=== PATIENT | male | born 1995 | race Caucasian/White ===

== ENCOUNTER 2019-08-03 14:29 | Emergency (ER) | payer SELFPAY ==
[2019-08-03] MEDS ORDERED: SODIUM CHLORIDE 0.9% 1,000 ML IV ONE (15:08)
[2019-08-03] MEDS ORDERED: KETOROLAC 30 MG/ML VIAL IVP STA (15:08)
--- NOTE | 2019-08-03 15:12 | ED Physician Documentation ---
PD HPI ABD PAIN - Stated complaint Stated Complaint: LT SIDE LOWER ABD PAIN, NO BM - Chief complaint Chief Complaint: Abd Pain - History obtained from History obtained from: Patient, Family - History of Present Illness Timing - onset: Enter time (1100), Today Timing - duration: Hours Timing - details: Abrupt onset, Still present Quality: Cramping, Sharp, Pain Location: LUQ, LLQ Radiation: Left flank Improved by: Other (nothing) Worsened by: Other (nothing) Associated symptoms: Nausea, Constipation. No: Vomiting, Diarrhea Similar symptoms before: Has not had sx before Recently seen: Not recently seen - Additional information Additional information: Previously well 24-year-old male has had acute onset of left flank pain radiating around the front of his abdomen at approximate 11:00 this morning he has had severe enough pain that he called his mother crying. She has brought him here to the hospital and his pain has undulated slightly but he does not have specific modifying factors for this pain. He does state that he thinks that when he was jumping up and down and running around in the front yard trying to get rid of the pain that it did not really help. He felt that it just made him short of breath. He has not had this previously. He does acknowledge no BM in the past 2 days.. Review of Systems Constitutional: denies: Fever, Chills Eyes: denies: Decreased vision Ears: denies: Ear pain Nose: reports: Rhinorrhea / runny nose, Congestion Throat: denies: Sore throat Cardiac: denies: Chest pain / pressure, Palpitations Respiratory: reports: Cough GI: reports: Abdominal Pain, Nausea, Constipation. denies: Vomiting, Diarrhea : denies: Dysuria, Frequency Skin: denies: Rash Musculoskeletal: reports: Back pain. denies: Neck pain, Extremity pain PD PAST MEDICAL HISTORY - Past Medical History Past Medical History: No Cardiovascular: None Respiratory: None Neuro: None Endocrine/Autoimmune: None GI: None : None HEENT: None Psych: None Musculoskeletal: None Derm: None - Past Surgical History Past Surgical History: No - Present Medications Home Medications: Ambulatory Orders Medication Instructions Recorded Confirmed Hydrocodone/Acetaminophen 1 - 2 each PO Q6H PRN #14 tablet 08/03/19 [Hydrocodon-Acetaminophen 5-325] - Allergies Allergies/Adverse Reactions: Allergies Allergy/AdvReac Type Severity Reaction Status Date / Time No Known Drug Allergies Allergy Verified 08/03/19 14:39 - Social History Does the pt smoke?: No Smoking Status: Never smoker Does the pt drink ETOH?: Yes Does the pt have substance abuse?: Yes Substance Use and Type: Marijuana - Immunizations Immunizations are current?: No - POLST Patient has POLST: No PD ED PE NORMAL - Vitals Vital signs reviewed: Yes (normal) - General General: Alert and oriented X 3, No acute distress, Well developed/nourished - HEENT HEENT: Atraumatic, PERRL, EOMI - Neck Neck: Supple, no meningeal sign, No bony TTP - Cardiac Cardiac: RRR, No murmur - Respiratory Respiratory: No respiratory distress, Clear bilaterally - Abdomen Abdomen: Normal bowel sounds, Soft, Non tender, Non distended, No organomegaly - Back Back: No CVA TTP, No spinal TTP - Derm Derm: Normal color, Warm and dry, No rash - Extremities Extremities: No deformity, No edema - Neuro Neuro: Alert and oriented X 3, customer service specialist 2-12 intact, No motor deficit, No sensory deficit, Normal speech Eye Opening: Spontaneous Motor: Obeys Commands Verbal: Oriented GCS Score: 15 - Psych Psych: Normal mood, Normal affect Results - Vitals Vitals: Vital Signs - 24 hr 08/03/19 08/03/19 14:39 16:54 Temperature 36.5 C 37 C Heart Rate 66 68 Respiratory 14 16 Rate Blood Pressure 112/75 123/79 O2 Saturation 100 100 Oxygen O2 Source Room air - Labs Labs: Laboratory Tests 08/03/19 08/03/19 08/03/19 15:15 15:15 16:18 WBC 11.4 H RBC 5.04 Hgb 15.1 Hct 43.6 MCV 86.5 MCH 30.0 MCHC 34.6 RDW 12.7 Plt Count 278 MPV 9.9 Neut # (Auto) 9.7 H Lymph # (Auto) 1.0 L [place] # (Auto) 0.6 Eos # (Auto) 0.0 Baso # (Auto) 0.1 Absolute Nucleated RBC 0.00 Nucleated RBC % 0.0 Sodium 138 Potassium 3.8 Chloride 101 Carbon Dioxide 27 Anion Gap 10.0 BUN 8 Creatinine 0.9 Estimated GFR (MDRD) 104 Glucose 112 H Calcium 9.1 Total Bilirubin 0.8 AST 16 ALT 13 Alkaline Phosphatase 90 Total Protein 7.2 Albumin 4.3 Globulin 2.9 Albumin/Globulin Ratio 1.5 Lipase 26 Urine Color YELLOW Urine Clarity CLEAR Urine pH 7.0 Ur Specific [place] <=1.005 Urine Protein NEGATIVE Urine Glucose (UA) NEGATIVE Urine Ketones NEGATIVE Urine Occult Blood LARGE H Urine Nitrite NEGATIVE Urine Bilirubin NEGATIVE Urine Urobilinogen 0.2 (NORMAL) Ur Leukocyte Esterase NEGATIVE Urine RBC 11-25 H Urine WBC 0-3 Ur Squamous Epith Cells NONE SEEN Urine Bacteria None Seen Ur Microscopic Review INDICATED Urine Culture Comments NOT INDICATED - Rads (name of study) CT ab/pel w/o Radiology: Prelim report reviewed (Impression: 3 x 3 x 3 mm left UVJ J calculus with mild upstream hydronephrosis.), EMP read indepedently, See rad report Procedures - Bedside sono Bedside sono by EMP: With use of bedside ultrasound the left kidney is imaged it is sonographically nontender there is evidence of hydronephrosis. PD MEDICAL DECISION MAKING - ED course Complexity details: reviewed results, re-evaluated patient, considered differential, d/w patient, d/w family ED course: 24-year-old male with acute onset of left flank pain has a nontender left flank and hydro-on bedside ultrasound. A CT scan of the abdomen pelvis is obtained demonstrating a 3 x 3 x 3 mm stone at the left UVJ and the patient has improvement in his pain with saline and Toradol. Departure - Departure Disposition: 01 Home, Self Care Clinical Impression: Ureterolithiasis Condition: Stable Instructions: ED Stone Renal W Colic Follow-Up: [facility] [Provider Group] Prescriptions: Hydrocodone/Acetaminophen [Hydrocodon-Acetaminophen 5-325] 1 - 2 each PO Q6H PRN #14 tablet PRN Reason: pain Discharge Date/Time: 08/03/19 16:54
[2019-08-03 15:26] LABS: BASOPHILS # (AUTO) 0.1 10^3/uL (0.0-0.1); BASOPHILS % (AUTO) 0.6 %; EOSINOPHILS % (AUTO) 0.3 %; HGB - HEMOGLOBIN 15.1 g/dL (14.0-18.0); LYMPHOCYTES % (AUTO) 8.6 %; MEAN CORPUSCULAR HGB CONC 34.6 g/dL (32.0-36.0); MEAN CORPUSCULAR VOLUME 86.5 fL (80.0-94.0); MEAN PLATELET VOLUME 9.9 fL (7.4-11.4); MONOCYTES # (AUTO) 0.6 10^3/uL (0.0-1.0); MONOCYTES % (AUTO) 5.4 %; NEUTROPHILS # (AUTO) 9.7 10^3/uL (1.5-6.6); NEUTROPHILS % (AUTO) 84.6 %; PLT - PLATELET COUNT 278 10^3/uL (130-450); RED BLOOD COUNT 5.04 10^6/uL (4.70-6.10); RED CELL DISTRIBUTION WIDTH 12.7 % (12.0-15.0); WHITE BLOOD COUNT 11.4 x10^3/uL (4.8-10.8)
[2019-08-03 15:37] LABS: ALBUMIN 4.3 g/dL (3.2-5.5); ALBUMIN/GLOBULIN RATIO 1.5 (1.0-2.2); BILIRUBIN,TOTAL 0.8 mg/dL (0.2-1.0); CALCIUM 9.1 mg/dL (8.5-10.3); CREATININE 0.9 mg/dL (0.6-1.2); TOTAL PROTEIN 7.2 g/dL (6.7-8.2)
--- NOTE | 2019-08-03 15:46 | CT Report ---
Reason: L flank pain Procedure Date: 08/03/2019 Accession Number: [id number] / [id number] Procedure: CT - Abdomen/Pelvis WO CPT Code: Final Report FULL RESULT: EXAM: CT ABDOMEN AND PELVIS (CT KUB) EXAM DATE: 08/03/2019 03:25 PM. CLINICAL HISTORY: Left flank pain COMPARISONS: None. TECHNIQUE: Routine axial helical CT imaging was performed through the abdomen and pelvis without IV contrast. Reconstructions: Coronal and sagittal. In accordance with CT protocol optimization, one or more of the following dose reduction techniques were utilized for this exam: automated exposure control, adjustment of mA and/or KV based on patient size, or use of iterative reconstructive technique. FINDINGS: Lung Bases: Clear. Right Kidney and Ureter: Tiny 2 mm intrarenal calculus in the upper pole (3/53). No hydronephrosis or hydroureter. No perinephric fat stranding. Left Kidney and Ureter: Mild hydroureteronephrosis extending to a 3 x 3 x 3 mm UVJ calculus (3/126, 5/39). Trace periureteric fat stranding. Other Solid Organs: Unremarkable noncontrast appearance of the liver, pancreas, spleen, and adrenal glands. Gallbladder/Bile Ducts: Unremarkable. No visualized stones or biliary ductal dilatation. Peritoneal Cavity/Bowel: The bowel is grossly unremarkable, without evident focal wall thickening or adjacent mesenteric fat stranding to suggest acute inflammatory process, or evidence of bowel obstruction. The appendix is normal. No free fluid, pneumoperitoneum, or popeye adenopathy. Pelvic Organs: No bladder stones or wall thickening. Noncontrast images of the visualized reproductive organs are within normal limits. Vasculature: Unremarkable. Bones: Normal. Other: None. IMPRESSION: 3 x 3 x 3 mm left UVJ calculus with mild upstream hydroureteronephrosis. RADIA
[2019-08-03 16:31] LABS: BILIRUBIN,URINE NEGATIVE (NEGATIVE); GLUCOSE, URINE (UA) NEGATIVE (NEGATIVE); KETONES,URINE (UA) NEGATIVE (NEGATIVE); LEUKOCYTE ESTERASE, URINE NEGATIVE (NEGATIVE); NITRITE,URINE NEGATIVE (NEGATIVE); OCCULT BLOOD,URINE LARGE (NEGATIVE); PROTEIN,URINE NEGATIVE (NEGATIVE); UROBILINOGEN,URINE 0.2 (NORMAL) E.U./dL (NORMAL)
[2019-08-03 16:44] LABS: CLARITY,URINE CLEAR (CLEAR)
[2019-08-03 16:53] LABS: BACTERIA,URINE None Seen /HPF (None Seen); SQUAMOUS EPITHELIAL CELL,UR NONE SEEN (<= Few)
[2019-08-03 16:56] VITALS: BP 123/79
== END 2019-08-03 16:54 | disposition home or self-care (01) ==
LOC: ED 14:29
DX: N13.2 Hydronephrosis with renal and ureteral calculous obstruction (principal)
CPT/HCPCS: 36415; 74176; 80053; 81001; 81003; 83690; 85025; 87086; 96361; 96374; 99284

== ENCOUNTER 2021-03-21 08:23 | Emergency (ER) | payer MEDICAID ==
--- NOTE | 2021-03-21 09:38 | ED Physician Documentation ---
PD HPI HEENT - Stated complaint Stated Complaint: SINUS SWELLING - Chief complaint Chief Complaint: Heent - History obtained from History obtained from: Patient - Additional information Additional information: Patient comes emergency department chief complaint of facial swelling and left maxillary dental pain. He states that one of his maxillary bicuspids is decayed down to the gingival line and that he has been having problems with it. No fevers or chills. No other complaints at this time. No throat or tongue swelling. Review of Systems Ten Systems: 10 systems reviewed and negative Constitutional: reports: Reviewed and negative Eyes: reports: Reviewed and negative Ears: reports: Reviewed and negative Nose: reports: Reviewed and negative Throat: reports: Dental pain / toothache Cardiac: reports: Reviewed and negative Respiratory: reports: Reviewed and negative GI: reports: Reviewed and negative : reports: Reviewed and negative Skin: reports: Reviewed and negative Musculoskeletal: reports: Reviewed and negative Neurologic: reports: Reviewed and negative Psychiatric: reports: Reviewed and negative Endocrine: reports: Reviewed and negative Immunocompromised: reports: Reviewed and negative PD PAST MEDICAL HISTORY - Past Medical History Past Medical History: No Cardiovascular: None Respiratory: None Neuro: Headaches Endocrine/Autoimmune: None GI: None : Kidney stones HEENT: None Psych: ADD/ADHD Musculoskeletal: Chronic back pain Derm: None - Past Surgical History Past Surgical History: No - Present Medications Home Medications: Ambulatory Orders Medication Instructions Recorded Confirmed Amoxicillin 500 mg PO TID 7 Days #21 cap 03/21/21 - Allergies Allergies/Adverse Reactions: Allergies Allergy/AdvReac Type Severity Reaction Status Date / Time No Known Drug Allergies Allergy Verified 03/21/21 08:27 - Social History Does the pt smoke?: No Smoking Status: Never smoker Does the pt drink ETOH?: Yes Does the pt have substance abuse?: Yes Substance Use and Type: Marijuana, CBD oil / Products - Immunizations Immunizations are current?: Yes - POLST Patient has POLST: No PD ED PE NORMAL - Vitals Vital signs reviewed: Yes - General General: Alert and oriented X 3, No acute distress - HEENT HEENT: Atraumatic, PERRL, EOMI, Moist mucous membranes, Other (Extremely poor dentition with multiple teeth decayed to the gingival line. Tenderness over left maxillary gingiva around the bicuspid and lateral incisor area. No mass or expressible drainage. No fluctuance. Moderate edema without induration left medial face adjacent to nasal bridge) - Neck Neck: Supple, no meningeal sign - Cardiac Cardiac: RRR, No murmur - Respiratory Respiratory: Clear bilaterally - Abdomen Abdomen: Normal bowel sounds, Soft, Non tender, Non distended - Derm Derm: Warm and dry - Extremities Extremities: No deformity - Neuro Neuro: Alert and oriented X 3 - Psych Psych: Normal mood, Normal affect Results - Vitals Vitals: Vital Signs - 24 hr 03/21/21 08:27 Temperature 36.5 C Heart Rate 101 H Respiratory 16 Rate Blood Pressure 142/92 H O2 Saturation 99 Oxygen O2 Source Room air PD MEDICAL DECISION MAKING - ED course Complexity details: considered differential, d/w patient ED course: Patient was given a dose of amoxicillin in the emergency department, as well as a prescription for at home. We have discussed the need to see a dentist as soon as possible Departure - Departure Disposition: 01 Home, Self Care Clinical Impression: Dental infection Condition: Stable Instructions: ED Tooth Pain Prescriptions: Amoxicillin 500 mg PO TID 7 Days #21 cap
[2021-03-21] MEDS: AMOXICILLIN 250 MG CAPSULE PO STA (09:42)
[2021-03-21 09:45] VITALS: BP 126/88
== END 2021-03-21 09:50 | disposition home or self-care (01) ==
LOC: ED 08:23
DX: K04.7 Periapical abscess without sinus (principal)
CPT/HCPCS: 99282; 99283; A9270

== ENCOUNTER 2023-04-16 16:02 | Emergency (ER) | payer MEDICAID ==
[2023-04-16 16:18] VITALS: O2SAT 99
--- NOTE | 2023-04-16 17:22 | ED Physician Documentation ---
PD HPI HEENT - Stated complaint Stated Complaint: MOUTH INFECTION,FACIAL NUMBING - Chief complaint Chief Complaint: Heent - History obtained from History obtained from: Patient - History of Present Illness Timing - onset: How many days ago (2-3) Timing - duration: Days Timing - details: Abrupt onset, Still present Review of Systems Constitutional: denies: Fever, Chills Nose: denies: Rhinorrhea / runny nose, Congestion Throat: reports: Dental pain / toothache. denies: Sore throat Respiratory: denies: Cough PD PAST MEDICAL HISTORY - Past Medical History Cardiovascular: None Respiratory: None Neuro: Headaches Endocrine/Autoimmune: None GI: None : Kidney stones HEENT: None Psych: ADD/ADHD Musculoskeletal: Chronic back pain Derm: None - Past Surgical History Past Surgical History: No - Present Medications Home Medications: Ambulatory Orders Medication Instructions Recorded Confirmed Chlorhexidine Gluconate [Peridex] 10 ml MM TID #118 ml 04/16/23 Naproxen 500 mg PO BID #20 tab 04/16/23 clindamycin HCL [Clindamycin HCl] 300 mg PO TID 7 Days #20 cap 04/16/23 - Allergies Allergies/Adverse Reactions: Allergies Allergy/AdvReac Type Severity Reaction Status Date / Time No Known Drug Allergies Allergy Verified 04/16/23 16:07 - Social History Does the pt smoke?: No Smoking Status: Never smoker Does the pt drink ETOH?: Yes Does the pt have substance abuse?: Yes - Immunizations Immunizations are current?: Yes - POLST Patient has POLST: No PD ED PE NORMAL - Vitals Vital signs reviewed: Yes - General General: Alert and oriented X 3, No acute distress, Well developed/nourished - HEENT HEENT: Pharynx benign. No: Dentition benign (diffuse severe decay. Upper gingiva with redness and tender in front area. Focally more tender with some swelling left incisor area. No fluctuance. ) - Neck Neck: Supple, no meningeal sign, No adenopathy - Derm Derm: Normal color, Warm and dry Results - Vitals Vitals: Vital Signs - 24 hr 04/16/23 04/16/23 16:08 18:01 Temperature 37.1 C Heart Rate 83 78 Respiratory 16 17 Rate Blood Pressure 127/84 H 130/79 O2 Saturation 99 99 Oxygen O2 Source Room air PD Medical Decision Making - ED course Complexity details: considered differential (upper gingiva redness and swelling with some local tenderness left frontal incisor without fluctuance. C/W dental infection without abscess. Significant dentald ecay diffusely. Should see dentist vs oral surgeon. ), d/w patient Departure - Departure Disposition: 01 Home, Self Care Clinical Impression: Dental caries, Infected dental caries Condition: Stable Record reviewed to determine appropriate education?: Yes Follow-Up: Nathalie Burnette [facility] [Provider Group] Juan Carlos Sandoval DDS [Provider Admit Priv/Credential] - Prescriptions: clindamycin HCL [Clindamycin HCl] 300 mg PO TID 7 Days #20 cap Naproxen 500 mg PO BID #20 tab Chlorhexidine Gluconate [Peridex] 10 ml MM TID #118 ml Comments: Use the clindamycin 3 times daily for a week. Naproxen anti-inflammatory twice daily with food for the next week to 10 days. The clindamycin would probably be best taken with food as well. Use chlorhexidine oral mouth rinse as prescribed to help clear some of the germs from the gum and teeth. We sent you home with a few pain pills for tonight use them every 6 hours if needed. The pharmacies are closed at this point. Follow-up with dental clinic for more definitive care of the teeth. Given multiple teeth decayed, I do not know if an oral surgeon would be more appropriate. I provided the name of 1 and you can call them and talk to the office to see if appropriate. Otherwise [facility] dental clinic as planned. I sent your prescriptions to your preferred pharmacy, [facility]. Forms: PCP List Discharge Date/Time: 04/16/23 18:02
[2023-04-16] MEDS ORDERED: CLINDAMYCIN 150 MG CAPSULE PO STA (17:39)
[2023-04-16] MEDS ORDERED: HYDROcod/ACET 5/325 Prepack 4 PO STA (17:39)
[2023-04-16] MEDS ORDERED: IBUPROFEN 400 MG TABLET PO STA (17:39)
[2023-04-16 18:05] VITALS: BP 130/79
== END 2023-04-16 18:02 | disposition home or self-care (01) ==
LOC: ED 16:02
DX: K02.9 Dental caries, unspecified (principal)
CPT/HCPCS: 99283; A9270

== ENCOUNTER 2023-08-11 08:13 | Emergency (ER) | payer MEDICAID ==
[2023-08-11 08:49] LABS: RAPID STREP SCREEN Negative (Negative)
[2023-08-11 09:33] LABS: B. PARAPERTUSSIS- RESP PCR PAN NOT DETECTED; B. PERTUSSIS- RESP PCR PANEL NOT DETECTED; C. PNEUMONIAE- RESP PCR PANEL NOT DETECTED; CORONAVIRUS 229E-RESP PCR NOT DETECTED; CORONAVIRUS HKU1-RESP PCR NOT DETECTED; CORONAVIRUS NL63-RESP PCR NOT DETECTED; CORONAVIRUS OC43-RESP PCR NOT DETECTED; HUMAN METAPNEUMOVIRUS NOT DETECTED; INFLUENZA A- RESP PCR PANEL NOT DETECTED; INFLUENZA B - RESP PCR PANEL NOT DETECTED; M. PNEUMONIAE- RESP PCR PANEL NOT DETECTED; PARAINFLUENZA VIRUS 1 NOT DETECTED; PARAINFLUENZA VIRUS 2 NOT DETECTED; PARAINFLUENZA VIRUS 3 NOT DETECTED; PARAINFLUENZA VIRUS 4 NOT DETECTED; RHINOVIRUS/ENTEROVIRUS NOT DETECTED; RSV- RESP PCR PANEL NOT DETECTED
[2023-08-11 09:37] LABS: SARS-CoV-2 -RESP PCR PANEL DETECTED
[2023-08-11] MEDS ORDERED: CHERRY SYRUP 10 ML UDC PO ONE (10:25)
[2023-08-11] MEDS ORDERED: DEXAMETHASONE 10 MG/ML VIAL PO STA (10:25)
--- NOTE | 2023-08-11 10:28 | ED Physician Documentation ---
PD HPI URI - Stated complaint Stated Complaint: HEAD PX/BODY ACHES/SORE THROAT - Chief complaint Chief Complaint: General - History obtained from History obtained from: Patient - History of Present Illness Timing - onset: How many days ago (4) Timing duration: Days (4) Timing details: Gradual onset, Still present Associated symptoms: Chills, Ear pain, Nasal congestion, Rhinorrhea, Dry cough Contributing factors: Sick contact (mother with covid) Improves by: Rest, Medication Worsened by: Activity, Breathing Similar symptoms before: Has not had sx before Recently seen: Not recently seen - Additional information Additional information: 28-year-old Richy Geronimo has developed a cough and congestion has been exposed to his mother who has had COVID. He has been immunized against COVID he did not get a booster and has not had COVID previously. He has had lots of exposure previously he is here today with complaints of a sore throat and difficulty swallowing as well as the cough and he is endorsing some muffled hearing worse on the left than the right. Review of Systems Constitutional: reports: Fever, Chills, Myalgias, Fatigue, Sweats Eyes: denies: Decreased vision Ears: reports: Loss of hearing, Ear pain Nose: reports: Rhinorrhea / runny nose, Congestion Throat: reports: Sore throat Cardiac: denies: Chest pain / pressure, Palpitations Respiratory: reports: Dyspnea, Cough GI: reports: Nausea. denies: Vomiting : denies: Dysuria Skin: denies: Rash Musculoskeletal: denies: Neck pain, Back pain, Extremity pain Neurologic: denies: Generalized weakness, Focal weakness, Numbness PD PAST MEDICAL HISTORY - Past Medical History Past Medical History: Yes Cardiovascular: None Respiratory: None Neuro: Headaches Endocrine/Autoimmune: None GI: None : Kidney stones HEENT: None Psych: ADD/ADHD Musculoskeletal: Chronic back pain Derm: None - Past Surgical History Past Surgical History: No - Present Medications Home Medications: Ambulatory Orders Medication Instructions Recorded Confirmed Amox/Clav 875/125 [Augmentin] 1 each PO Q12H #20 tablet 08/11/23 - Allergies Allergies/Adverse Reactions: Allergies Allergy/AdvReac Type Severity Reaction Status Date / Time No Known Drug Allergies Allergy Verified 08/11/23 08:28 - Social History Does the pt smoke?: No Smoking Status: Never smoker Does the pt drink ETOH?: No Does the pt have substance abuse?: Yes Substance Use and Type: Marijuana - Immunizations Immunizations are current?: Yes - POLST Patient has POLST: No PD ED PE NORMAL - Vitals Vital signs reviewed: Yes (tachy and hypertensive ) - General General: Alert and oriented X 3, No acute distress, Well developed/nourished, Other (disheveled male with carious teeth is cooperative and thankful. ) - HEENT HEENT: Atraumatic, PERRL, EOMI, Other (Both TMs are inflamed the left is much more than the right the pharynx shows 2+ tonsils with exudate.) - Neck Neck: Supple, no meningeal sign, No bony TTP - Cardiac Cardiac: No murmur, Other (Tachycardia to 100) - Respiratory Respiratory: No respiratory distress, Other (Diminished breath sounds bilaterally without focal wheeze or rhonchi) - Abdomen Abdomen: Soft, Non tender - Back Back: No CVA TTP, No spinal TTP - Derm Derm: Normal color, Warm and dry, No rash - Extremities Extremities: No deformity, No edema - Neuro Neuro: Alert and oriented X 3, grab driver 2-12 intact, No motor deficit, No sensory deficit, Normal speech Eye Opening: Spontaneous Motor: Obeys Commands Verbal: Oriented GCS Score: 15 - Psych Psych: Normal mood, Normal affect Results - Vitals Vitals: Vital Signs - 24 hr 08/11/23 08/11/23 08/11/23 08:29 09:48 11:19 Temperature 37.9 C 38.6 C H 38.2 C H Heart Rate 118 H 101 H 95 Respiratory 18 16 16 Rate Blood Pressure 114/90 H 119/81 H 130/88 H O2 Saturation 98 100 97 Oxygen O2 Source Room air - Labs Labs: Laboratory Tests 08/11/23 08/11/23 08:35 08:35 Nasal Adenovirus (PCR) NOT DETECTED Nasal B. parapertussis DNA (PCR) NOT DETECTED Nasal Coronavir 229E PCR NOT DETECTED Nasal Coronavir HKU1 PCR NOT DETECTED Nasal Coronavir NL63 PCR NOT DETECTED Nasal Coronavir OC43 PCR NOT DETECTED Nasal Enterovir/Rhinovir PCR NOT DETECTED Nasal Influenza B PCR NOT DETECTED Nasal Influenza A PCR NOT DETECTED Nasal Parainfluen 1 PCR NOT DETECTED Nasal Parainfluen 2 PCR NOT DETECTED Nasal Parainfluen 3 PCR NOT DETECTED Nasal Parainfluen 4 PCR NOT DETECTED Nasal RSV (PCR) NOT DETECTED Nasal B.pertussis DNA PCR NOT DETECTED Nasal C.pneumoniae (PCR) NOT DETECTED [place] Human Metapneumo PCR NOT DETECTED Nasal M.pneumoniae (PCR) NOT DETECTED Nasal SARS-CoV-2 (PCR) DETECTED A Group A Strep Rapid Negative - Rads (name of study) chest Relevant Findings:: Prelim report reviewed (Impression: No acute radiographic abnormality on this portable single view study.), EMP independent interpretation of test, See rad report PD Medical Decision Making - ED course Complexity details: considered differential, d/w patient Reviewed Lab Results: We reviewed a viral nasal swab which detected COVID. We reviewed a rapid strep which was negative. I interpreted these test to indicate the patient has COVID and does not have strep as a cause for his sore throat. ED course: Richy Geronimo presented to the emergency department with a sore throat a cough and tested positive for COVID. On examination he has obvious and angry otitis and he has had a prior ear infection that was significant. We will treat this. Departure - Departure Disposition: 01 Home, Self Care Clinical Impression: COVID Otitis media Qualifiers: Otitis media type: suppurative Chronicity: acute Laterality: bilateral Recurrence: not specified as recurrent Spontaneous tympanic membrane rupture: without spontaneous rupture Qualified Code(s): H66.003 - Acute suppurative otitis media without spontaneous rupture of ear drum, bilateral Instructions: ED Otitis Media Acute Adult, Flu and Cold: Nutrition, Prevention and Treatment Tips Prescriptions: Amox/Clav 875/125 [Augmentin] 1 each PO Q12H #20 tablet Comments: Richy, today it looks like the symptoms you are having along with your COVID are worsened by middle ear infection. I have E scribed some Augmentin to the [facility] in [place]. Our expectation with treatment is improvement in your symptoms over the next several days. Forms: PCP List Discharge Date/Time: 08/11/23 11:30
--- NOTE | 2023-08-11 10:58 | XRAY Report ---
PROCEDURE: Chest 1V INDICATIONS: cough TECHNIQUE: One view of the chest was acquired. COMPARISON: None. FINDINGS: Surgical changes and devices: None. Lungs and pleura: No consolidation or pleural effusion. Mediastinum: Normal heart size Bones and chest wall: No acute or suspicious osseous finding. IMPRESSION: No acute radiographic abnormality on this portable single view study. Reviewed by: Gene Carney MD on 08/11/2023 10:57 AM [facility] Approved by: Gene Carney MD on 08/11/2023 10:57 AM [facility] Station ID: [id number]
[2023-08-11 11:21] VITALS: BP 130/88; O2SAT 97
== END 2023-08-11 11:30 | disposition home or self-care (01) ==
LOC: ED 08:13
DX: U07.1 COVID-19 (principal); J02.9 Acute pharyngitis, unspecified; R05.9 Cough, unspecified; R50.9 Fever, unspecified; R09.81 Nasal congestion; J34.89 Other specified disorders of nose and nasal sinuses; M79.10 Myalgia, unspecified site; R53.83 Other fatigue; R61 Generalized hyperhidrosis; H66.003 Acute suppurative otitis media without spontaneous rupture of ear drum, bilateral
CPT/HCPCS: 71045; 87070; 87430; 87633; 99283; 99284; A9270